=== PATIENT | male | born 1995 | race Caucasian/White ===

== ENCOUNTER 2017-09-30 20:19 | Emergency (ER) | payer OTHER ==
[2017-09-30 20:25] VITALS: BP 139/78; PULSE 98; TEMP 99.4; BMI 21.2
--- NOTE | 2017-09-30 21:01 | PDOC ---
History of Present Illness - General Chief Complaint: Cold Symptoms Stated Complaint: COLD SYMPTOMS Time Seen by Provider: 09/30/17 20:45 History Source: Patient Exam Limitations: No Limitations - History of Present Illness Initial Comments: 09/30/17 22:18 Patient is a 22 y/o M with no PMH who presents to the ED with two days of fever , chills, body aches, leg pain and sore throat. Pt. has been taking tylenol for his symptoms with little relief. Patient states he did not get his flu shot this year. Denies shortness of breath, difficulty breathing, wheezing, nausea, vomiting, diarrhea. Past History - Past Medical History Allergies/Adverse Reactions: Allergies Allergy/AdvReac Type Severity Reaction Status Date / Time No Known Allergies Allergy Verified 09/30/17 20:25 Home Medications: Ambulatory Orders Ibuprofen 800 mg PO TID #30 tablet 09/30/17 Oseltamivir Phosphate [Tamiflu] 75 mg PO BID #10 capsule 09/30/17 Asthma: Yes - Suicide/Smoking/Psychosocial Hx Smoking Status: No Smoking History: Never smoked Have you smoked in the past 12 months: No Number of Cigarettes Smoked Daily: 0 Information on smoking cessation initiated: No Hx Alcohol Use: No Drug/Substance Use Hx: No Review of Systems - Review of Systems Able to Perform ROS?: Yes Comments:: 09/30/17 22:42 CONSTITUTIONAL: Present: fever, chills, malaise Absent: diaphoresis, generalized weakness, loss of appetite HEENT: Present: rhinorrhea, nasal congestion Absent: throat pain, throat swelling, difficulty swallowing, mouth swelling, ear pain, eye pain, visual Changes CARDIOVASCULAR: Absent: chest pain, loss of consciousness, palpitations, irregular heart rate, peripheral edema RESPIRATORY: Present: cough Absent: shortness of breath, dyspnea with exertion, orthopnea, wheezing, stridor, hemoptysis GASTROINTESTINAL: Absent: abdominal pain, abdominal distension, nausea, vomiting, diarrhea, constipation, melena, hematochezia GENITOURINARY: Absent: dysuria, frequency, urgency, hesitancy, hematuria, flank pain, genital pain MUSCULOSKELETAL: Absent: myalgia, arthralgia, joint swelling SKIN: Absent: rash, itching, pallor HEMATOLOGIC/IMMUNOLOGIC: Absent: easy bleeding, easy bruising, lymphadenopathy, frequent infections ENDOCRINE: Absent: unexplained weight gain, unexplained weight loss, heat intolerance, cold intolerance NEUROLOGIC: Absent: headache, focal weakness or paresthesias, dizziness, unsteady gait, seizure, mental status changes, bladder or bowel incontinence PSYCHIATRIC: Absent: anxiety, depression, suicidal or homicidal ideation, hallucinations. Is the patient limited [place] proficient: No *Physical Exam - Vital Signs Last Vital Signs Temp Pulse Resp BP Pulse Ox 99.4 F 98 H 16 139/78 100 09/30/17 20:23 09/30/17 20:23 09/30/17 20:23 09/30/17 20:23 09/30/17 20:23 - Physical Exam Comments: 09/30/17 22:44 GENERAL: Well developed, well nourished. Awake and alert. No acute distress. HEENT: Normocephalic, atraumatic. PERRLA, EOMI. No conjunctival pallor. Sclera are non- icteric. Moist mucous membranes. Oropharynx is clear. NECK: Supple. Full ROM. No JVD. Carotid pulses 2+ and symmetric, without bruits. No thyromegaly. No lymphadenopathy. CARDIOVASCULAR: Regular rate and rhythm. No murmurs, rubs, or gallops. Distal pulses are 2+ and symmetric. PULMONARY: No evidence of respiratory distress. Lungs clear to auscultation bilaterally. No wheezing, rales or rhonchi. ABDOMINAL: Soft. Non-tender. Non-distended. No rebound or guarding. No organomegaly. Normoactive bowel sounds. MUSCULOSKELETAL Normal range of motion at all joints. No bony deformities or tenderness. No CVA tenderness. EXTREMITIES: No cyanosis. No clubbing. No edema. No calf tenderness. SKIN: Warm and dry. Normal capillary refill. No rashes. No jaundice. NEUROLOGICAL: Alert, awake, appropriate. Cranial nerves 2-12 intact. No deficits to light touch and temperature in face, upper extremities and lower extremities. No motor deficits in the in face, upper extremities and lower extremities. Normoreflexic in the upper and lower extremities. Normal speech. Toes are down- going bilaterally. Gait is normal without ataxia. PSYCHIATRIC: Cooperative. Good eye contact. Appropriate mood and affect. Medical Decision Making - Medical Decision Making 09/30/17 22:44 Patient is a 22-year-old male with no past medical history presents with 2 days of flulike symptoms. Patient was rapid flu swab and tested positive for flu a. We'll treat with Tamiflu at this time. Patient also instructed to use Tylenol or Motrin as needed for fevers. Patient understands all discharge instructions and all questions were answered at this time. *DC/Admit/Observation/Transfer Diagnosis at time of Disposition: Influenza A - Discharge Dispostion Disposition: HOME Condition at time of disposition: Stable Admit: No - Prescriptions Prescriptions: Ibuprofen 800 mg PO TID #30 tablet Oseltamivir Phosphate [Tamiflu] 75 mg PO BID #10 capsule - Referrals Referrals: Saman Pitts MD [Primary Care Provider] - - Patient Instructions Printed Discharge Instructions: DI for Influenza -- Adult Additional Instructions: You have the flu. Please start taking the Tamiflu tonight. Follow the dosing instructions on the bottle. Tamiflu helps to reduce your flu symptoms for one day. It also helps reduce the severity of the symptoms. Please take Motrin 800 mg every 8 hours to help with your fevers and body aches. Please expect to be sick for approximately 7-10 days. Please drink plenty of fluids. Get plenty of rest. Follow-up with her primary care doctor in 1 week. Return to the emergency department if you have difficulty breathing, shortness of breath, or have any new or concerning symptoms. - Post Discharge Activity Forms/Work/School Notes: Back to School
[2017-09-30] MEDS ORDERED: IBUPROFEN 400 MG TABLET (FP) PO ONE ×2 (21:12→21:13)
== END 2017-09-30 22:20 | disposition home or self-care (01) ==
LOC: JERFT 20:19
DX: J09.X2 Influenza due to identified novel influenza A virus with other respiratory manifestations (principal)
CPT/HCPCS: 87804; 99281-25

== ENCOUNTER 2021-08-24 08:59 | Emergency (ER) | payer OTHER ==
[2021-08-24 09:37] VITALS: BP 134/85; PULSE 100; TEMP 98.7; BMI 21.7
== END 2021-08-24 11:35 | disposition home or self-care (01) ==
LOC: JER 08:59
DX: J18.9 Pneumonia, unspecified organism (principal)
CPT/HCPCS: 71046-TC-FY; 87804; 99284-25; C9803; U0003; U0005